=== PATIENT | male | born 1995 | race Caucasian/White ===

== ENCOUNTER 2016-12-25 12:00 | Emergency (ER) | payer OTHER ==
[~2016-12-25] VITALS: Ht 167.6 cm; Wt 65.5 kg
[2016-12-25 12:01] VITALS: BP 129/78; PULSE 98; TEMP 98.1
== END 2016-12-25 13:09 | disposition home or self-care (01) ==
LOC: COL.ER 12:00
DX: S96.911A Strain of unspecified muscle and tendon at ankle and foot level, right foot, initial encounter (principal); W50.0XXA Accidental hit or strike by another person, initial encounter; Y92.414 Local residential or business street as the place of occurrence of the external cause